=== PATIENT | male | born 1955 | race Caucasian/White ===

== ENCOUNTER 2021-01-26 07:31 | Emergency (ER) | payer OTHER ==
[~2021-01-26] VITALS: Ht 180.3 cm; Wt 71.3 kg
[2021-01-26] MEDS ORDERED: ORPHENADRINE CITRATE 60 MG/2 ML VIAL. IM ONE (08:15)
[2021-01-26] MEDS ORDERED: KETOROLAC 60 MG/2 ML VIAL. IM ONE (08:15)
--- NOTE | 2021-01-26 08:45 | PHYS DOC ---
Past History Past Surgical History: Other Additional Past Surgical Histo: perirectal abcess Alcohol Use: Occasionally General Adult EDM: Chief Complaint: BACK PAIN - NO INJURY HPI: HPI: Patient is a 65-year-old male coming in for bilateral low back pain. Patient states that he had bent over and was standing when the pain started. Took 2 Aleve's at home. Denies any prior history of back problems. Denies any pop or snapping sensation. Chest pain does not radiate down his legs. No bowel or bladder dysfunction, no history of urinary problems or kidney stones. No personal or family history of cancer. States he otherwise has been well. No fevers or night sweats Review of Systems: Review of Systems: All other systems within normal limits except for as noted in the HPI Current Medications: Current Meds: Current Medications Medications (Trade) Dose Ordered Sig/Aria Start Time Stop Time Status Last Admin Dose Admin Ketorolac Tromethamine (Toradol Im) 60 mg 1X ONCE 01/26/21 08:15 01/26/21 08:38 DC 01/26/21 08:32 60 MG Orphenadrine Citrate (Norflex) 60 mg 1X ONCE 01/26/21 08:15 01/26/21 08:37 DC 01/26/21 08:31 60 MG Allergies: Allergies: Allergies Coded Allergies Type Severity Reaction Last Updated Verified No Known Drug Allergies 01/26/21 No Physical Exam: PE: Constitutional: Well developed, well nourished, no acute distress, non-toxic appearance. [] HENT: Normocephalic, atraumatic, bilateral external ears normal, nose normal. [] Eyes: PERRLA, conjunctiva normal, no discharge. [] Neck: No rigidity, supple, no stridor. [] Cardiovascular: Regular rate and rhythm, brisk cap refill [] Lungs & Thorax: Non labored symmetric respirations, no tachypnea or respiratory distress [] Abdomen: Soft, nondistended. Skin: Warm, dry, no erythema, no rash. [] Back: Unremarkable, no step-off or deformity, bilateral lumbar tenderness, no point spinal tenderness Extremities: No deformities, range of motion grossly intact, no lower extremity edema [] Neurologic: Alert and oriented X 3, no focal deficits noted. [] Psychologic: Affect normal, judgement normal, mood normal. [] Current Patient Data: Vital Signs: Vital Signs Date Time Temp Pulse Resp B/P (MAP) Pulse Ox O2 Delivery O2 Flow Rate FiO2 01/26/21 08:36 72 20 111/58 (75) 98 Room Air 01/26/21 07:44 97.5 EKG: EKG: [] Radiology/Procedures: Radiology/Procedures: [address] [id number] IMAGING REPORT Signed PATIENT: RABIA ANGELO ACCOUNT: [id number] : 1955 LOCATION: ER AGE: 65 SEX: M EXAM STATUS: REG ER ORD. PHYSICIAN: NIYA MARLOW MD REASON: LOW BACK PAIN. NKI. PROCEDURE: LUMBAR SPINE 2-3V XR LUMBAR SPINE 2-3V History: Reason: LOW BACK PAIN. NKI. / Spl. Instructions: / History: Technique: 3 views lumbar spine. Comparison: None. Findings: Normal vertebral body height and alignment. No fracture. Mild degenerative disc changes. Mild lower lumbar facet arthropathy. Impression: 1. Mild multilevel lumbar spondylosis. Electronically signed by: Charlie Kerr DO (01/26/2021 8:58 AM) [id number] DICTATED AND SIGNED BY: CHARLIE KERR DO DATE: 01/26/21 0856 CC: NIYA MARLOW MD; AI JEFF ~MTH0 0 [] Heart Score: C/O Chest Pain: No Risk Factors: Risk Factors: DM, Current or recent (<one month) smoker, HTN, HLP, family history of CAD, obesity. Risk Scores: Score 0 - 3: 2.5% MACE over next 6 weeks - Discharge Home Score 4 - 6: 20.3% MACE over next 6 weeks - Admit for Clinical Observation Score 7 - 10: 72.7% MACE over next 6 weeks - Early Invasive Strategies Course & Med Decision Making: Course & Med Decision Making Pertinent Labs and Imaging studies reviewed. (See chart for details) [] Dragon Disclaimer: Dragon Disclaimer: This electronic medical record was generated, in whole or in part, using a voice recognition dictation system. Departure Departure: Impression: Primary Impression: Low back pain Disposition: HOME / SELF CARE / HOMELESS Condition: STABLE Referrals: AI JEFF (PCP) Patient Instructions: Back Pain, Adult Scripts Oxycodone Hcl/Acetaminophen (PERCOCET 5-325 MG TABLET ) 1 Each Tablet 1 TAB PO PRN Q6HRS PRN for PAIN for 3 Days, #10 TAB Prov: NIYA MARLOW MD 01/26/21 Meloxicam (MELOXICAM) 15 Mg Tablet 1 TAB PO DAILY PRN for PAIN for 10 Days, #10 TAB 0 Refills Prov: NIYA MARLOW MD 01/26/21 NIYA MARLOW MD Jan 26, 2021 08:45
--- NOTE | 2021-01-26 09:01 | RAD ---
XR LUMBAR SPINE 2-3V History: Reason: LOW BACK PAIN. NKI. / Spl. Instructions: / History: Technique: 3 views lumbar spine. Comparison: None. Findings: Normal vertebral body height and alignment. No fracture. Mild degenerative disc changes. Mild lower l umbar facet arthropathy. Impression: 1. Mild multilevel lumbar spondylosis. Electronically signed by: Charlie Kerr DO (01/26/2021 8:58 AM) [id number]
[2021-01-26] MEDS ORDERED: DEXAMETHASONE 4 MG TABLET ONE (09:21)
[2021-01-26] MEDS ORDERED: oxyCODONE/APAP 7.5/325 1 TAB TABLET ONE (09:22)
[2021-01-26] MEDS ORDERED: DEXAMETHASONE 4 MG TABLET PO ONE (09:30)
[2021-01-26] MEDS ORDERED: oxyCODONE/APAP 7.5/325 1 TAB TABLET PO ONE (09:30)
[2021-01-26] MEDS ORDERED: MELO15TA23 PO (09:38)
[2021-01-26] MEDS ORDERED: OXYC1TAB15 PO (09:38)
[2021-01-26 09:50] VITALS: BP 102/43
== END 2021-01-26 09:52 | disposition home or self-care (01) ==
LOC: ER 07:31
DX: M54.5 Low back pain (principal)
CPT/HCPCS: 72100; 96372; 99284; J1885; J2360; J8540